=== PATIENT | male | born 1975 | race Hispanic/Latino ===

== ENCOUNTER 2024-11-05 19:16 | Emergency (ER) | payer OTHER ==
[~2024-11-05] VITALS: Ht 165.1 cm; Wt 85.0 kg
[2024-11-05 19:30] VITALS: BP 145/104
[2024-11-05 19:45] VITALS: BP 129/89
[2024-11-05 20:00] VITALS: BP 134/106
[2024-11-05 20:15] VITALS: BP 137/95
[2024-11-05 20:19] VITALS: BP 137/95
== END 2024-11-05 20:19 | disposition home or self-care (01) | DRG 156 ==
LOC: ED 19:16
PROC: 09C47ZZ Extirpation of Matter from Left External Auditory Canal, Via Natural or Artificial Opening (ICD-10-PCS; principal; 2024-11-05)
DX: T16.2XXA Foreign body in left ear, initial encounter (principal); W44.F4XA Insect entering into or through a natural orifice, initial encounter